=== PATIENT | male | born 1955 | race Caucasian/White ===

== ENCOUNTER 2017-08-07 05:54 | Day surgery (SDC) | payer BC ==
[2017-08-01 09:25] VITALS: BMI 25.4
--- NOTE | 2017-08-06 13:58 | HP ---
HISTORY AND PHYSICAL DATE OF SERVICE: 08/07/2017 Wero Hutchison is a 61-year-old patient seen with progressive right shoulder pain. We discussed treatment options. He elected to proceed with arthroscopy. Consent regarding the procedure was obtained. PAST MEDICAL HISTORY: Noncontributory. PAST SURGICAL HISTORY: Appendectomy, herniorrhaphy, sinus surgery, tonsillectomy. DAILY MEDICATIONS: None. ALLERGIES: None reported. SOCIAL HISTORY: Patient denies tobacco use. PHYSICAL EVALUATION RIGHT SHOULDER: Flexion 100 degrees, abduction 100 degrees, external rotation is 30 degrees with pain and weakness. There is tenderness along the anterior lateral acromion rotator cuff insertion site. Impingement sign positive 80 degrees. Drop-arm sign is positive. Distal neurovascular exam is intact. Radiographs of the right shoulder revealed a type 2 anterior acromion, evidence for acromioclavicular joint osteoarthritis. An MRI of right shoulder revealed rotator cuff tear and partial biceps tendon tear. IMPRESSION: Right shoulder impingement with rotator cuff tear, acromioclavicular joint osteoarthritis and partial biceps tendon tear. PLAN: Right shoulder arthroscopy with subacromial decompression, probable arthroscopic rotator cuff repair, Eryn procedure, biceps tenotomy and debridement. MMODL / IJN: [id number] /
[~2017-08-07 05:54] MED LIST: ceFAZolin IN SWFI 2 GM/20 ML SYRINGE IVP ONE
[2017-08-07] MEDS ORDERED: DEXAMETHASONE SOD PHOSPHATE 10 MG/ML 1 ML VIAL IV ONE (05:55)
[2017-08-07] MEDS ORDERED: LACTATED RINGERS 1,000 ML IV SCH (05:55)
[2017-08-07] MEDS ORDERED: MIDAZOLAM 2 MG/2 ML VIAL IV PRN (05:55)
[2017-08-07] MEDS ORDERED: LIDOCAINE 1% 20 ML VIAL (10MG/ML) FOR IV START INTRADERMA PRN (05:55)
[2017-08-07] MEDS ORDERED: HYDROmorphone 0.5 MG/0.5 ML SYRINGE IVP PRN (05:55)
[2017-08-07] MEDS ORDERED: ONDANSETRON 4 MG/2 ML VIAL IVP ONE (05:55)
[2017-08-07] MEDS ORDERED: SCOPOLAMINE 1.5MG/72HR PATCH TRANSDERM ONE (05:55)
[2017-08-07] MEDS ORDERED: fentaNYL (PF) 50 MCG/ML 2 ML AMP IV ONE (06:51)
[2017-08-07] MEDS ORDERED: PHENYLEPHRINE-0.9% NACL SYG 1 MG/10 ML SYRINGE ONE (07:27)
[2017-08-07] MEDS ORDERED: SUCCINYLCHOLINE CHLORIDE 100 MG/5 ML SYR IV ONE (07:27)
[2017-08-07] MEDS ORDERED: MIDAZOLAM 2 MG/2 ML VIAL ONE (07:27)
[2017-08-07] MEDS ORDERED: LIDOCAINE 1% INJ 10MG/ML (20 ML MDV) ONE (07:27)
[2017-08-07] MEDS ORDERED: fentaNYL (PF) 50 MCG/ML 2 ML AMP ONE (07:27)
[2017-08-07] MEDS ORDERED: PROPOFOL 10 MG/ML 20 ML VIAL IV ONE (07:27)
[2017-08-07] MEDS ORDERED: ROPIVACAINE 5 MG/ML 30 ML VIAL ONE (07:27)
[2017-08-07] MEDS ORDERED: LIDOCAINE 2%-EPI 1:100,000 20 ML VIAL ONE (07:27)
--- NOTE | 2017-08-07 07:30 | P.ONQ ---
Anesthesiology Proc Note - PNB - Peripheral Nerve Block Performed Right Interscalene Single Time Out Performed: Yes Procedure Start Time: 06:50 Indication: Acute Post-Operative Pain, Analgesia Specifically requested for management of pain by DrRuiz: Mj Salzaar Sedation Type: Sedate with meaningful contact maintained Preparation: Sterile Prep Position: Supine Catheter: None Needle Types: Other (see comment) (stimuplex) Needle Size: 50mm (2") Needle Gauge: 21 Technique: Ultrasound Injectate: 0.5% Ropivacaine (see comment for volume) (25 cc) Blood Aspirated: No Pain Paresthesia on Injection Noted: No Resistance on Injection: Normal Events: Uneventful and Well Tolerated
[2017-08-07] MEDS ORDERED: LACTATED RINGERS 1,000 ML IV ONE (08:59)
[2017-08-07 09:37] VITALS: TEMP 97
--- NOTE | 2017-08-07 09:41 | P.OP ---
Date of Procedure: 08/07/17 Preoperative Diagnosis: Right shoulder impingement Postoperative Diagnosis: 1. Right shoulder rotator cuff tear 2. Right shoulder impingement 3. Right shoulder acromioclavicular joint osteoarthritis 4. Right shoulder partial long head biceps tendon tear 5. Right shoulder superficial labral tear 6. 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 Right shoulder arthroscopic rotator cuff repair 2. Right shoulder arthroscopic subacromial decompression 3. Right shoulder arthroscopic Eryn procedure 4. Right shoulder arthroscopic biceps tenotomy 5. Right shoulder arthroscopic debridement labral tear 6. Right shoulder arthroscopic chondroplasty glenoid Implants: 4- 5.5 peek anchors Anesthesia: GETA, regional (interscalene block) Surgeon: Mj Salazar English Composition Instructor #1: Sanjay Ramirez Estimated Blood Loss (ml): 15 Pathology: none sent Condition: stable Disposition: PACU Indications for Procedure: 61-year-old patient seen with progressive right shoulder pain. After having treatment options discussed, he elected to proceed with arthroscopy. Operative Findings: see description of procedure Description of Procedure: Patient underwent a shoulder block by department of anesthesia. The patient was then taken to the operative suite. The patient underwent a general anesthetic by the department of anesthesia. The patient was placed into a lateral position and secured. There was appropriate padding of the bony prominence. right shoulder was then prepped and draped in normal sterile orthopedic fashion. We placed the extremity in 10 pounds of longitudinal traction. A posterior incision was now made for a posterior working portal site. The trocar and cannula were inserted into the glenohumeral joint. Arthroscopy was initiated. Spinal needle was now inserted anteriorly, to ascertain the anterior working portal site. An incision was now made in that area, a trocar was inserted followed by a probe. There was superficial tearing of the anterior and superior labrum. There was a longitudinal split tear in the long head biceps tendon with hyperemia. There was a area of grade 1/2 chondromalacia in the central portion of the glenoid. There was an obvious rotator cuff tear visualized from glenohumeral side. I performed an arthroscopic biceps tenotomy. I debrided the labral tear down to stable tissue. I performed a chondroplasty of the central glenoid down to stable osteochondral tissue. The residual labrum was found to be stable as was the residual osteochondral surface of the glenoid. Instruments were now removed from the glenohumeral joint. Utilizing the posterior working portal site, the trocar and cannula were inserted into the subacromial space. Arthroscopy initiated. I made an incision 2 fingerbreadths lateral to the acromion. I introduced my trocar followed by my [employer] ablator. I now began ablating thick subacromial bursal tissue, which exposed the undersurface of the anterior acromion. This was diminished subacromial space. There was a very prominent anterior acromion. A motorized bur was introduced and a subacromial decompression was performed. I also excised some osteophytes off the inferior aspect of the distal clavicle. The AC joint was visualized and noted to be fairly arthritic. Our motorized bur was introduced in the anterior portal site and a Eryn procedure was performed without difficulty, decompressing the AC joint nicely. I turned my attention to the rotator cuff. There was an obvious tear along the anterior aspect distal supraspinatus measuring 11.5 cm. there was also a second tear along the posterior aspect of the distal supraspinatus measuring 1.52 cm. I debrided both tendon tears down to stable tissue. I abraded the footprint of both the areas of the tears. I now inserted 2 everted mattress sutures anteriorly along with 2 loops sutures for potential dogears. I now pulled the tendon down over the footprint and introduced 2 anchors compressing that tendon very nicely. Residual suture limbs were clipped. I now passed for everted mattress sutures through the posterior tear. I pull the tendon over an repaired that with 2 anchors compressing that tendon along the footprint nicely. Residual suture limbs were clipped. We had good stable repair repairs both anteriorly and posteriorly. I injected 1 mL UCT intra-articular.There also Instruments now removed from the portal sites. All portal sites were approximated with nylon suture. Sterile dressings were applied followed by a shoulder immobilizer. Bubba MACK assisted with the procedure. The patient was awakened, transferred to a bed, and taken to recovery in stable condition.
[2017-08-07 09:46] VITALS: RESP 16
[2017-08-07 12:14] VITALS: BP 144/85; PULSE 71
== END 2017-08-07 13:08 | disposition home or self-care (01) ==
LOC: OR 05:54
PROVIDERS: ATTEND Orthopaedic Surgery
DX: M75.101 Unspecified rotator cuff tear or rupture of right shoulder, not specified as traumatic (principal); M25.811 Other specified joint disorders, right shoulder; M19.011 Primary osteoarthritis, right shoulder; S43.401A Unspecified sprain of right shoulder joint, initial encounter; S46.111A Strain of muscle, fascia and tendon of long head of biceps, right arm, initial encounter; X58.XXXA Exposure to other specified factors, initial encounter; M94.211 Chondromalacia, right shoulder; M25.711 Osteophyte, right shoulder
CPT/HCPCS: 64415; 29826; 29827; 29824; C1894; C1713 ×2; C1765; J2250; J1100; J2405; J2001; J3010; J2795; J2370; J0330; J2704; J0690

== ENCOUNTER 2021-11-15 12:11 | Emergency (ER) | payer MEDICARE ==
[2021-11-15 12:43] VITALS: RESP 18; TEMP 97.8
[2021-11-15] MEDS ORDERED: SCOPOLAMINE 1 MG/72 HR PATCH TRANSDERM STA (14:07)
[2021-11-15] MEDS ORDERED: diazePAM 5 MG TAB PO STA (14:07)
[2021-11-15] MEDS ORDERED: METOCLOPRAMIDE 5 MG TAB PO STA (14:07)
--- NOTE | 2021-11-15 14:12 | ED ---
General Adult HPI - General Chief complaint: Dizziness Stated complaint: Dizziness/Nausea Time Seen by Provider: 11/15/21 13:50 Source: patient, RN notes reviewed, old records reviewed Mode of arrival: ambulatory Limitations: no limitations - History of Present Illness Initial comments: This is a 66-year-old male who presents emergency Department complaining of dizziness and nausea. Patient states he was diagnosed with vertigo 2008 per patient states this is the worst episode ever had he's seen in another hospital's ER as well as his primary medical care doctor and he started taking Antivert with no relief. Patient states he has no headache no numbness no weakness. Patient states movement definitely makes it worse states she'll definitely makes it better. Patient denies any chest pain difficulty breathing shortness of breath or palpitations. Patient denies any abdominal pain. Patient states he does have nausea and has been vomiting. Patient denies any diarrhea. - Related Data Home Medications Medication Instructions Recorded Confirmed Fluticasone Nasal [place] [Flonase 2 spray EA NOSTRIL DAILY 11/15/21 11/15/21 Nasal [place]] Meclizine [Antivert] 25 mg PO TID PRN 11/15/21 11/15/21 Allergies Allergy/AdvReac Type Severity Reaction Status Date / Time No Known Allergies Allergy Verified 11/15/21 14:36 Review of Systems ROS Statement: Those systems with pertinent positive or pertinent negative responses have been documented in the HPI. ROS Other: All systems not noted in ROS Statement are negative. Past Medical History Past Medical History: No Reported History Additional Past Medical History / Comment(s): vertgio History of Any Multi-Drug Resistant Organisms: None Reported Past Surgical History: Appendectomy, Hernia Repair, Orthopedic Surgery Additional Past Surgical History / Comment(s): mole removed from back, cyst removed from wrist Past Anesthesia/Blood Transfusion Reactions: No Reported Reaction Past Psychological History: No Psychological Hx Reported Smoking Status: Never smoker Past Alcohol Use History: Occasional Past Drug Use History: None Reported - Past Family History Mother Family Medical History: No Reported History General Exam - General Exam Comments Initial Comments: GENERAL: Patient is well-developed and well-nourished. Patient is nontoxic and well- hydrated and is in mild distress. ENT: Neck is soft and supple. No significant lymphadenopathy is noted. Oropharynx is clear. Moist mucous membranes. Neck has full range of motion without eliciting any pain. EYES: The sclera were anicteric and conjunctiva were pink and moist. Extraocular movements were intact and pupils were equal round and reactive to light. Eyelids were unremarkable. PULMONARY: Unlabored respirations. Good breath sounds bilaterally. No audible rales rhonchi or wheezing was noted. CARDIOVASCULAR: There is a regular rate and rhythm without any murmurs gallops or rubs. ABDOMEN: Soft and nontender with normal bowel sounds. SKIN: Skin is clear with no lesions or rashes and otherwise unremarkable. NEUROLOGIC: Patient is alert and oriented x3. Cranial nerves II through XII are grossly intact. Motor and sensory are also intact. Normal speech, volume and content. Symmetrical smile. Cerebellar testing finger to nose was normal bilaterally MUSCULOSKELETAL: Normal extremities with adequate strength and full range of motion. LYMPHATICS: No significant lymphadenopathy is noted PSYCHIATRIC: Normal psychiatric evaluation. Limitations: no limitations Course Vital Signs 11/15/21 11/15/21 12:38 13:53 Temperature 97.8 F Pulse Rate 62 54 L Respiratory 18 18 Rate Blood Pressure 157/78 162/90 O2 Sat by Pulse 98 99 Oximetry Medical Decision Making - Medical Decision Making EKG shows sinus bradycardia 55 bpm FL interval is 170 QRS is under 2 QT interval 390 QTC is 37. Patient's EKG shows no ST segment elevation or depression. Patient's CT of the brain shows no acute abnormality. Patient received Valium, Reglan and scopolamine patch for the vertigo. Patient will follow-up with ENT if the symptoms persist Disposition Clinical Impression: Vertigo Disposition: HOME SELF-CARE Condition: Good Instructions (If sedation given, give patient instructions): Vertigo (ED) Additional Instructions: Patient should follow-up with ENT if symptoms persist. Patient can continue taking Antivert Is patient prescribed a controlled substance at d/c from ED?: No Referrals: Ulises Duncan MD [Primary Care Provider] - 1-2 days Time of Disposition: 14:53
--- NOTE | 2021-11-15 14:50 | CT ---
EXAMINATION TYPE: CT brain wo con DATE OF EXAM: 11/15/2021 COMPARISON: None HISTORY: dizziness, vertigo CT DLP: 1110.[address] of the brain was performed. The ventricles, basal cisterns and sulci overlying the cerebral convexities demonstrate mild enlargem ent. There is no evidence for intracranial hemorrhage or sulcal effacement. There is decreased attenuation about the periventricular white matter and deep white matter of both c erebral hemispheres, compatible with chronic small vessel ischemia. Differential diagnosis does inclu de demyelination. No mass effects are seen.No midline shift. Osseous calvarium is intact. Moderate chronic maxillary sinusitis. If symptoms persist consider MRI. IMPRESSION: 1. Age related atrophic and chronic small vessel ischemic change without acute intracranial process s een at this time. Chronic sinusitis.
[2021-11-15 15:14] VITALS: BP 141/78; PULSE 58
== END 2021-11-15 15:14 | disposition home or self-care (01) ==
LOC: EC 12:11
DX: R42 Dizziness and giddiness (principal); R11.2 Nausea with vomiting, unspecified
CPT/HCPCS: 70450; 93005; 99284